=== PATIENT | female | born 1995 | race Caucasian/White ===

== ENCOUNTER 2017-04-10 12:35 | Emergency (ER) | payer SELFPAY ==
[~2017-04-10] VITALS: Ht 162.6 cm; Wt 100.0 kg
[2017-04-10] MEDS ORDERED: KETOROLAC 60MG/2ML VIAL IM ONE (15:45)
[2017-04-10 15:54] VITALS: BP 141/90
[2017-04-10 16:05] LABS: HCG SCREEN NEGATIVE
== END 2017-04-10 17:22 | disposition home or self-care (01) ==
LOC: ER 15:34
DX: M54.5 Low back pain (principal); F17.210 Nicotine dependence, cigarettes, uncomplicated
CPT/HCPCS: 72100; 81025; 84703; 96372; 99285; J1885